=== PATIENT | male | born 1960 | race Caucasian/White ===

== ENCOUNTER 2017-03-27 10:28 | Emergency (ER) | payer MEDICARE, BC ==
--- NOTE | 2017-03-27 11:02 | ERPHSYRPT ---
- History of Present Illness Time Seen by Provider: 03/27/17 10:55 Source: patient Exam Limitations: no limitations Patient Subjective Stated Complaint: left foot injury Physician History: mild constant and positional left foot ache for one day after walking, no other injury, pt refused pain med, pt is ambulatory Timing/Duration: yesterday Severity: mild Allergies/Adverse Reactions: prochlorperazine edisylate [From Compazine] Allergy (Mild, Verified 03/02/13 14: 53) Muscle Aches PT STATES "IT GIVES ME LOCK JAW" prochlorperazine maleate [From Compazine] Allergy (Mild, Verified 03/02/13 14:53 ) Muscle Aches PT STATES "IT GIVES ME LOCK JAW" Hx Tetanus, Diphtheria Vaccination/Date Given: Yes Hx Influenza Vaccination/Date Given: No Hx Pneumococcal Vaccination/Date Given: No - Review of Systems Constitutional: No Symptoms Respiratory: No Symptoms Musculoskeletal: Joint Pain Skin: No Skin Lesions Neurological: No Dizziness Psychological: No Symptoms - Past Medical History Pertinent Past Medical History: Yes Neurological History: No Pertinent History ENT History: No Pertinent History Cardiac History: High Cholesterol, Hypertension Respiratory History: No Pertinent History Endocrine Medical History: No Pertinent History Musculoskeletal History: No Pertinent History GI Medical History: No Pertinent History History: No Pertinent History Psycho-Social History: No Pertinent History Male Reproductive Disorders: Testicular Cancer - Past Surgical History Past Surgical History: Yes Neuro Surgical History: No Pertinent History Cardiac: No Pertinent History Respiratory: No Pertinent History Gastrointestinal: No Pertinent History Genitourinary: No Pertinent History Musculoskeletal: No Pertinent History Male Surgical History: Testicular Surgery - Social History Smoking Status: Current every day smoker How long have you smoked: 40 Exposure to second hand smoke: No Alcohol Use: Socially Drug Use: none Patient Lives Alone: No Significant Family History: hypertension - Nursing Vital Signs Nursing Vital Signs: Initial Vital Signs Temperature 97.9 F 03/27/17 10:55 Pulse Rate 74 03/27/17 10:55 Blood Pressure 158/95 03/27/17 10:55 O2 Sat by Pulse Oximetry 96 03/27/17 10:55 Pain Scale Pain Intensity 7 - Physical Exam General Appearance: no apparent distress Extremity Exam: other (tender left heel, no sts, sen and pulses intact, nontender ankle and knee) Neurologic Exam: alert, oriented x 3, cooperative Skin Exam: normal color, warm, dry - Radiology Exams Foot X-ray Interpretation: Discussed w/ radiologist, No Fracture, Other (+heel spur) Ordered Tests: Active Orders 24 hr Category Date Time Status FOOT (MINIMUM 3 VIEWS) Stat Exams 03/27/17 10:58 Completed - Progress Progress: unchanged Discussed with : Du Will see patient in: office Counseled pt/family regarding: diagnosis, need for follow-up, rad results (ice and elevation and motrin, pt refused crutches) - Departure Time of Disposition: 11:30 Departure Disposition: Home Clinical Impression: Heel pain Qualifiers: Laterality: left Qualified Code(s): M79.672 - Pain in left foot Condition: Stable Critical Care Time: No Referrals: TOMAS VILLATORO MD [Primary Care Provider] - Instructions: Foot Pain
--- NOTE | 2017-03-27 11:21 | XRAY ---
Indication: Heel pain. Comparison: None 3 nonweightbearing views of the left foot demonstrates small posterior heel spur. No other bony, articular, or soft tissue abnormalities.
[2017-03-27 11:57] VITALS: BP 150/78; PULSE 78; O2SAT 98
== END 2017-03-27 11:56 | disposition home or self-care (01) ==
LOC: ED 10:28
DX: M79.672 Pain in left foot (principal)
CPT/HCPCS: 73630; 99283

== ENCOUNTER 2017-11-30 08:27 | Day surgery (SDC) | payer MEDICARE, BC ==
--- NOTE | 2017-11-30 08:04 | HP ---
DATE OF SURGERY: 11/30/2017 HISTORY OF PRESENT ILLNESS: The patient is a 57 year-old the past year increasing in size subcutaneous mass base of his neck to posterior base of neck. Question lipoma or other etiology. He desires excision as it is increasing in size and increased symptoms. PAST MEDICAL HISTORY: Hypertension. PAST SURGICAL HISTORY: Broken right arm in the past. Testicular cancer. Lymph node removal in the back in the past. MEDICATIONS: Hypertension medication the name of which he did not know. ALLERGIES: COMPAZINE. FAMILY HISTORY: Hypertension. SOCIAL HISTORY: One pack per day smoker, occasional alcohol use denies abuse. REVIEW OF SYSTEMS: Twelve systems reviewed per admission assessment. No chest pain or palpitations other systems negative or noncontributory as above and per preadmission questionnaire. PHYSICAL EXAMINATION: GENERAL: No acute distress. HEENT: Sclerae nonicteric. NECK: No JVD. Posterior base of the neck subcutaneous mass question lipoma versus other etiology. CHEST: Equal excursion, nonlabored breathing. CVS: Regular rate and rhythm. ABDOMEN: Soft. No peritoneal signs. EXTREMITIES: No significant edema. NEURO: Alert, moving extremities symmetrically. No gross motor deficits noted. IMPRESSION: Enlarging posterior base of the neck subcutaneous mass question lipoma. I feel the patient will benefit from excisional biopsy. Risks and benefits explained in detail including but not limited to bleeding or infection, risk of hematoma or seroma formation, risk of wound dehiscence possibly requiring packing, possibility that what we excise likely will not recur but he could get similar mass or nodule adjacent to or elsewhere on his back, neck or other place on his body. He understands and agrees to the planned procedure as well as general risk of anesthesia, deep venous thrombosis, pulmonary embolism, pneumonia, will proceed with excisional biopsy posterior neck subcutaneous mass.
[~2017-11-30 08:27] MED LIST: Lactated Ringers 1,000 ML IV ONE; Sensorcaine 0.25% 10 ML ONE
[2017-11-30] MEDS ORDERED: DIPRIVAN 200 MG/20 ML IV ONE (08:28)
[2017-11-30] MEDS ORDERED: Quelicin Fliptop 200 MG/10 ML IV ONE (08:28)
[2017-11-30] MEDS ORDERED: Versed 2 MG/2 ML Injection IV ONE (08:28)
[2017-11-30] MEDS ORDERED: SUBLIMAZE 100 MCG/2 ML IV ONE (08:28)
[2017-11-30] MEDS ORDERED: Lactated Ringers 1,000 ML IV SCH (09:00)
[2017-11-30] MEDS ORDERED: Lactated Ringers 1,000 ML IV ONE (09:20)
[2017-11-30] MEDS ORDERED: KEFZOL 1 GM ONE (10:56)
[2017-11-30 13:26] VITALS: PULSE 54
[2017-11-30 13:40] VITALS: BP 140/77; O2SAT 95
--- NOTE | 2017-12-01 10:30 | OP ---
SURGERY DATE/TIME: 11/30/2017 1116 PREOPERATIVE DIAGNOSIS: Enlarging symptomatic base of posterior neck subcutaneous mass or lipoma. POSTOPERATIVE DIAGNOSIS: Enlarging symptomatic base of posterior neck subcutaneous mass or lipoma. PROCEDURE: Excisional biopsy posterior base of neck lipoma (approximately 7 cm). SURGEON: Dr. Adrian Mata. ANESTHESIA: General. ESTIMATED BLOOD LOSS: Minimal. INDICATIONS: As noted above. Risks and benefits explained in detail and not limited to and consent obtained. DESCRIPTION OF PROCEDURE AND FINDINGS: The patient is taken to the operating room. General anesthesia induced. The site is confirmed and marked in the preoperative holding area. He was then positioned in the lateral position. Appropriate padding and positioned per anesthesia staff. After official time out and no disagreement with planned procedure, transverse incision made. Dissection carried down circumferentially around the lipomatous firm density dissecting off the underlying fascia. It measured about 7 cm in size and passed off for pathology. The wound is irrigated out. Good hemostasis noted. Subcu closed back down to the level of the fascia with interrupted 3-0 Vicryl. Skin closed with 4-0 Vicryl, interrupted 3-0 Prolene used to reinforce the area given location at the base of the posterior neck. Steri-Strips and sterile dressing applied. The patient tolerated the procedure well. There were no immediate complications. Findings discussed with the family out in the waiting area.
== END 2017-11-30 13:40 | disposition home or self-care (01) ==
LOC: SDC 08:27
PROVIDERS: ATTEND Surgery
DX: D17.0 Benign lipomatous neoplasm of skin and subcutaneous tissue of head, face and neck (principal); R22.1 Localized swelling, mass and lump, neck; R20.8 Other disturbances of skin sensation; I10 Essential (primary) hypertension; Z72.0 Tobacco use
CPT/HCPCS: J0330; J0690; J2250; J2704; J3010

== ENCOUNTER 2022-03-03 09:53 | Day surgery (SDC) | payer MEDICARE, BC ==
--- NOTE | 2022-03-03 09:25 | HP ---
DATE OF SURGERY: 03/03/2022 HISTORY OF PRESENT ILLNESS: The patient is a 61-year-old with ventral hernia and prior laparotomy. He states he had cancer in 1988. He had a bulge and ventral hernia, I feel he would benefit from repair. He denied recent colonoscopy so I recommend colonoscopy for evaluation prior to proceeding. I checked with Dr. Sandy office requesting to go ahead and schedule colonoscopy. PAST MEDICAL HISTORY: Heart disease. Nerve damage in the past. Testicular cancer. Hypertension. Hyperlipidemia. Neuropathy in the past. He has been followed by Dr. Wild from heart standpoint. Ventral hernia signs and symptoms. PAST SURGICAL HISTORY: Cholecystectomy. Laparotomy for testicular cancer. Lumpectomy in the past. Appendectomy in the past. MEDICATIONS: Atorvastatin, gabapentin, aspirin, hydrochlorothiazide, metoprolol. ALLERGIES: COMPAZINE. FAMILY HISTORY: Negative in regards to this problem. SOCIAL HISTORY: Former smoker. Occasional alcohol use denies abuse. REVIEW OF SYSTEMS: Fourteen systems reviewed. No chest pain or palpitations. Other systems negative or noncontributory as above and per preadmission questionnaire. PHYSICAL EXAMINATION: GENERAL: No acute distress. HEENT: Sclerae nonicteric. NECK: No JVD. CHEST: Equal excursion, nonlabored breathing. CVS: Regular rate and rhythm. ABDOMEN: Soft. Midline exploratory lap incision. EXTREMITIES: No cyanosis or edema. NEURO: Alert, oriented, moving extremities symmetrically. RECTAL: Deferred timed to endoscopy exam. PSYCH: Appropriate mood and affect. IMPRESSION: Ventral incisional hernias. He is need of eventual repair. However, he would benefit from a colonoscopy before proceeding with hernia repair. Will proceed with outpatient colonoscopy under MAC anesthesia. General risk of bleeding or infection, risk of bowel injury or perforation, risk of missed or nondiagnosis or incomplete exam possibly requiring barium enema, other studies or procedures, general risk of anesthesia or sedation, will proceed with colonoscopy prior to proceeding with incisional hernia repair. He understands and agrees to the planned procedure, will proceed with colonoscopy under MAC anesthesia first and at a later date will schedule laparoscopic robot-assisted ventral hernia repair with mesh as an outpatient possible open.
[2022-03-03] MEDS: Lactated Ringers 1,000 ML IV SCH (11:08)
[2022-03-03] MEDS ORDERED: DIPRIVAN 200 MG/20 ML IV ONE ×3 (12:56→13:17)
[2022-03-03] MEDS ORDERED: Xylocaine-Mpf 2% 5 Ml Vial ONE (12:56)
[2022-03-03 13:53] VITALS: O2SAT 95
[2022-03-03 14:30] VITALS: BP 126/79; PULSE 80
--- NOTE | 2022-03-04 08:20 | OP ---
SURGERY DATE/TIME: 03/03/2022 1254 PREOPERATIVE DIAGNOSIS: No prior colonoscopy, need for screening colonoscopy prior to eventual laparoscopic or robotic ventral incisional hernia repair in the future. POSTOPERATIVE DIAGNOSES: 1) ASA Class III. 2) Fair bowel prep. 3) Pancolonic diverticulosis. 4) Colon polyps cecum, transverse colon, descending colon and sigmoid colon. 5) Withdrawal time approximately 8 minutes and 30 seconds. PROCEDURES: 1) Colonoscopy to cecum. 2) Hot snare polypectomy cecal polyp. 3) Hot biopsy polypectomy transverse colon polyp. 4) Hot biopsy polypectomy descending colon polyp. 5) Hot biopsy polypectomy of early polyps versus hyperplastic lesion sigmoid colon x3. SURGEON: Dr. Adrian Mata. ANESTHESIA: MAC. ESTIMATED BLOOD LOSS: Minimal. INDICATIONS: As noted above. Risks and benefits explained in detail but not limited to and consent obtained. DESCRIPTION OF PROCEDURE AND FINDINGS: The patient is taken to the OR. General anesthesia induced. Abdomen prepped and draped in the usual sterile fashion. After official time out and no disagreement with planned procedure, digital rectal exam did not reveal any rectal masses. Video colonoscope inserted and passed up through the slightly tortuous sigmoid, descending, transverse and ascending colon. With the external pressure the scope was able to be passed around to the cecum. Appendiceal orifice and valve well visualized, required multiple position changes and two different staff members pushing on the abdomen. We were able to reach the cecum. In the cecum there was 2.5 to 3 mm polyp removed with hot snare polypectomy with brief bursts of cautery. Good hemostasis noted. The staff said it was retrieved. Prep overall was fair with a little bit of liquidy semisolid stool. The scope is slowly and carefully withdrawn. There was some small diverticula throughout the colon pancolonic. The scope slowly and carefully withdrawn. The scope is pulled back to transverse colon. Small early polyp removed with hot biopsy polypectomy. Another small polyp descending colon and three small early polyps versus hyperplastic lesion in the sigmoid colon removed with hot biopsy polypectomy. Good hemostasis noted. Overall the prep was fair. There was a little bit of liquidy semisolid stool suctioned irrigated as clear as possible slightly limiting the exam for small lesions. No signs of any large polyps, masses or obstructing lesions. The scope is withdrawn. He tolerated the procedure well. Findings discussed with the family out in the waiting area.
== END 2022-03-03 14:35 ==
LOC: SDC 09:53
PROVIDERS: ATTEND Surgery
DX: Z12.11 Encounter for screening for malignant neoplasm of colon (principal); Z85.47 Personal history of malignant neoplasm of testis; K57.30 Diverticulosis of large intestine without perforation or abscess without bleeding; D12.0 Benign neoplasm of cecum; D12.4 Benign neoplasm of descending colon; D12.5 Benign neoplasm of sigmoid colon
CPT/HCPCS: J2704

== ENCOUNTER 2022-04-14 09:24 | Day surgery (SDC) | payer MEDICARE, BC ==
--- NOTE | 2022-04-14 08:20 | HP ---
DATE OF SURGERY: 04/14/2022 HISTORY OF PRESENT ILLNESS: The patient is a 61-year-old with testicular cancer. He had laparotomy in the past, orchiectomy, appendectomy and cholecystectomy. PAST MEDICAL HISTORY: Hypertension, hyperlipidemia, neuropathy, history of testicular cancer in the past. PAST SURGICAL HISTORY: Laparotomy in the past, orchiectomy, appendectomy, cholecystectomy. He had colonoscopy recently to clear his colon. MEDICATIONS: Atorvastatin, aspirin, gabapentin, hydrochlorothiazide, lisinopril, metoprolol. ALLERGIES: COMPAZINE. FAMILY HISTORY: Heart disease, abdominal aortic aneurysm in the family. SOCIAL HISTORY: He does smoke cigars. REVIEW OF SYSTEMS: Fourteen systems reviewed negative or noncontributory as above and per preadmission questionnaire. PHYSICAL EXAMINATION: GENERAL: No acute distress. HEENT: Sclerae nonicteric. NECK: No JVD. CHEST: Equal excursion, nonlabored breathing. CVS: Regular rate and rhythm. ABDOMEN: Ventral hernia in need of repair. EXTREMITIES: No significant edema. NEURO: Alert, oriented, moving extremities symmetrically. PSYCH: Appropriate mood and affect. IMPRESSION: He has a ventral hernia now in need of repair. We had discussed options. I felt he would benefit from laparoscopic repair of incarcerated ventral hernia possible open with mesh. General risk of bleeding or infection, risk of trocar injury or hernia, risk of bowel, bladder, blood vessel injury, risk of adhesion, scar formation or obstruction. Risk of mesh infection possibly requiring removal. Risk of hematoma or seroma formation, risk of hernia recurrence. 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 General risk of anesthesia, sedation, deep venous thrombosis, pulmonary embolism, pneumonia, possibly may require open repair. Depending on the size of mesh used, might require possible stay for pain control perioperatively. He agrees to the planned procedure, will proceed when OR time available.
[2022-04-14] MEDS ORDERED: CEFAZOLIN 2 GM-D5W BAG** 2 GM/50 ML ML IV SCH (10:30)
[2022-04-14] MEDS ORDERED: Lactated Ringers 1,000 ML IV SCH (10:30)
[2022-04-14] MEDS ORDERED: DIPRIVAN 200 MG/20 ML IV ONE (12:06)
[2022-04-14] MEDS ORDERED: Xylocaine-Mpf 2% 5 Ml Vial ONE ×2 (12:06→14:11)
[2022-04-14] MEDS ORDERED: TORAdol 30 mg Injection ONE (12:06)
[2022-04-14] MEDS ORDERED: Decadron 4 MG INJ ONE ×2 (12:06→14:11)
[2022-04-14] MEDS ORDERED: BRIDION 200MG/2ML IV ONE (12:06)
[2022-04-14] MEDS ORDERED: Zofran 4 MG/2 ML VIAL ONE (12:06)
[2022-04-14] MEDS ORDERED: Zemuron 100 MG/10 ML ONE (12:06)
[2022-04-14] MEDS ORDERED: SUBLIMAZE 100 MCG/2 ML ONE ×2 (12:07→15:02)
[2022-04-14] MEDS ORDERED: OFIRMEV 100 ML IV ONE (12:12)
[2022-04-14] MEDS ORDERED: Magnesium Sulfate 1 GM/2 ML VIAL ONE (12:15)
[2022-04-14] MEDS ORDERED: Ketamine HCl 50 MG/ML ONE (12:45)
[2022-04-14] MEDS ORDERED: Versed 2 MG/2 ML Injection ONE (12:52)
[2022-04-14] MEDS ORDERED: Ephedrine Sulfate 50 MG/ML ONE (13:20)
[2022-04-14] MEDS ORDERED: Marcaine 0.5%/Epinephrine 10 ML ONE (14:11)
[2022-04-14] MEDS ORDERED: Lactated Ringers 1,000 ML IV ONE (14:12)
[2022-04-14] MEDS ORDERED: DEXMEDETOMIDINE 80 MCG/20ML-NS IV ONE (14:14)
[2022-04-14] MEDS ORDERED: Xopenex 1.25 MG/0.5 ML UD NEBULE IH ONE ×2 (16:01→16:06)
[2022-04-14] MEDS ORDERED: Sodium Chloride 3 ML UD NEBULES IH ONE (16:06)
[2022-04-14 16:47] VITALS: O2SAT 91
[2022-04-14 17:00] VITALS: BP 117/70; PULSE 60
--- NOTE | 2022-04-15 08:55 | OP ---
SURGERY DATE/TIME: 04/14/2022 1227 PREOPERATIVE DIAGNOSIS: Symptomatic incarcerated ventral incisional hernia. POSTOPERATIVE DIAGNOSIS: Symptomatic incarcerated ventral incisional hernia with two hernias with fairly extensive intra-abdominal adhesions. PROCEDURES: 1) Laparoscopic-assisted incarcerated ventral incisional hernia repair with mesh. 2) Laparoscopic lysis of adhesions. SURGEON: Dr. Adrian Mata. FIELD CARE MANAGER: Sue Navarrete, Medical Student III. ANESTHESIA: General. ESTIMATED BLOOD LOSS: Minimal. INDICATIONS: As noted above. Risks and benefits explained in detail and not limited to and consent obtained. DESCRIPTION OF PROCEDURE AND FINDINGS: The patient is taken to the operating room. General anesthesia induced. The patient prepped and draped in usual sterile fashion. After official time out and no disagreement with planned procedure, a transverse incision made in the left upper quadrant. Fascia grasped and pulled upwards. Veress needle inserted and tested with saline. Pneumoperitoneum accomplished opening pressure 0 to 15. A 5 mm bladeless port and camera inserted without difficulty. There is no evidence of any intra-abdominal injury secondary to trocar insertion. There were a bunch of adhesions in the mid abdomen. A clear spot was seen over on the other side right upper quadrant near the liver. Another 5 mm port is placed there. Carefully looking back using an angled lens, it was elected to put the other two ports in the left mid and left lower quadrant. Once this was accomplished, slow careful dissection with a combination of sharp dissection with laparoscopic juan without injury as well as using the LigaSure to seal small vascular omentum stuck up against the abdominal wall this is slowly and carefully dissected out. There is a nice filmy adhesion plane allowing the colon to come down. There were some small bowel loops towards the inferior edge of the hernia area but reducing the incarcerated fat that was the largest of the two hernias allowed this to finally be lowered. There is no evidence of any visceral injury. It did take some time to carefully mobilize this incarcerated fat out of the hernia. There were two hernia side by side. It was felt this warranted repair with mesh carefully measured allowing it to overlap. A size [address] mesh most appropriate size available at this facility. Again, it added time carefully taking down the small bowel adhesions more to the abdominal wall in a caudal direction where the hernia sac was to allow for enough space to put the mesh was accomplished slowly and carefully. There was no evidence of any visceral issues or injury. No energy is used with sharp dissection with laparoscopic juan. At this point again it was felt a size 8 mesh, a small incision was made up above the two defect areas carefully dissecting around each sac. Interrupted #1 Vicryl was used to bring the attenuated fascia back to the midline. Once this was accomplished, these sutures were temporarily tagged. A 12 port was placed through the defect allowing the mesh that had been wet to be tacked to four quadrants with 0 Ethibond. The port is placed. The mesh was tagged with transfascial sutures at four quadrants with 0 Ethibond and 0 Vicryl placed in the center of the mesh. The straps were removed. The mesh was then wet and gently rolled and carefully placed down in the abdomen maintaining its shape. The transfascial sutures were then pulled up and tied bringing the fascia back to midline. The centering Vicryl suture was used to center the mesh and pulled up and tied. The mesh was lying nice and flat through four separate stab wounds. Once this is accomplished using both the right side and left sided ports, Capture Tacker placed 1 cm apart around the periphery and SorbaFix placed centrally to reduce the risk of space or seroma formation. The mesh was lying nice and flat in a tension free manner. The patient tolerated the procedure. Careful inspection of the viscera did not reveal any issue. At this point pneumoperitoneum decompressed. Ports removed. Subcu was tacked down over the larger port incision. The skin closed with 4-0 Vicryl. Steri-Strips and sterile dressing applied. 0.25% Marcaine local had been injected along the skin incision. Anesthesia applied tap blocks. The patient tolerated the procedure well. There were no immediate complications. Findings discussed with the family out in the waiting area. He was transferred to the recovery room in stable condition.
== END 2022-04-14 17:17 | disposition home or self-care (01) ==
LOC: SDC 09:24
PROVIDERS: ATTEND Surgery
DX: K43.0 Incisional hernia with obstruction, without gangrene (principal); K66.0 Peritoneal adhesions (postprocedural) (postinfection); C62.90 Malignant neoplasm of unspecified testis, unspecified whether descended or undescended
CPT/HCPCS: 64488; 76937; 76942; 94640; J0690; J1100; J1885; J2250; J2405; J2704; J3010; J3475; L0625; A9270-GY; C1781